=== PATIENT | female | born 1980 | race Caucasian/White ===

== ENCOUNTER 2017-07-10 16:40 | Emergency (ER) | payer MEDICAID ==
[2017-07-10 17:23] LABS: URINE PH (Dip) POC 6.5 (5.0-8.5)
[2017-07-10 17:23] LABS: URINE BLOOD (Dip) POC Negative (NEGATIVE); URINE GLUCOSE (Dip) POC Negative (NEGATIVE); URINE KETONES (Dip) POC Negative (NEGATIVE); URINE LEUKOCYTE EST (Dip) POC Negative (NEGATIVE); URINE NITRITE (Dip) POC Negative (NEGATIVE); URINE TOTAL PROTEIN POC 1+ (NEGATIVE)
[2017-07-10] MEDS: KETOROLAC 60 MG INJ IM (17:33)
== END 2017-07-10 18:06 | disposition home or self-care (01) ==
LOC: FTE 16:40
DX: R51 Headache (principal); J45.909 Unspecified asthma, uncomplicated
CPT/HCPCS: 81003; 81025; 96372; 99284-25